=== PATIENT | female | born 1940 | race Two or more races ===

== ENCOUNTER 2024-02-01 22:44 | Emergency (ER) | payer OTHER ==
[~2024-02-01] VITALS: Ht 157.5 cm; Wt 31.8 kg
[2024-02-01] MEDS ORDERED: MONTELUKAST SODI4 M1 PO (23:08)
[2024-02-01] MEDS ORDERED: ARNUITY ELLIPT50 MCG IH (23:08)
[2024-02-01] MEDS ORDERED: FOLIC ACID0.8 M1 PO (23:09)
[2024-02-01] MEDS ORDERED: DILT-XR180 MG PO (23:09)
[2024-02-01] MEDS ORDERED: B-COMPLEX1 EACH PO (23:10)
[2024-02-01] MEDS ORDERED: VITAMIN D32400 UNIT/ MC (23:10)
[2024-02-01] MEDS ORDERED: TROMBONEX CAPS1 EACH PO (23:10)
[2024-02-01] MEDS ORDERED: LUMIGAN2.5 M1 (23:11)
[2024-02-01] MEDS ORDERED: DORZOLAMIDE 2%10 ML OP (23:11)
[2024-02-01] MEDS ORDERED: ATROPINE 1% EY1 EACH OP (23:12)
[2024-02-01] MEDS ORDERED: BENZONATATE200 M1 PO (23:12)
[2024-02-01] MEDS ORDERED: PRED PH-MOXI-BRO5 ML (23:12)
[2024-02-01] MEDS ORDERED: IBANDRONATE SO150 MG PO (23:13)
[2024-02-02] MEDS ORDERED: HYOSCYAMINE SULFATE 0.125 MG TAB.SUBL SL STA (00:32)
[2024-02-02] MEDS ORDERED: PROMETHAZINE HCL 25 MG/ML AMPUL IM STA (00:32)
[2024-02-02] MEDS ORDERED: FAMOTIDINE/PF 20 MG/2 ML VIAL IV PUSH STA (00:33)
[2024-02-02] MEDS ORDERED: LACTOBACILLUS ACIDOPHILUS 1 CAP CAP PO STA (00:33)
[2024-02-02] MEDS ORDERED: 0.9 % SODIUM CHLORIDE 1,000 ML IV ONE (00:45)
[2024-02-02] MEDS ORDERED: PROMETHAZINE HCL 25 MG/ML AMPUL ONE (01:05)
[2024-02-02] MEDS ORDERED: HYOSCYAMINE SULFATE 0.125 MG TAB.SUBL ONE (01:05)
[2024-02-02] MEDS ORDERED: LACTOBACILLUS ACIDOPHILUS 1 CAP CAP PO ONE (01:06)
[2024-02-02] MEDS ORDERED: FAMOTIDINE/PF 20 MG/2 ML VIAL ONE (01:06)
[2024-02-02 02:12] LABS: CALCIUM 8.6 mg/dL (8.5-10.1); CREATININE SERUM 1.56 mg/dL (0.55-1.02); GFR 31.54; POTASSIUM 3.13 mEq/L (3.5-5.1)
[2024-02-02 02:23] LABS: HEMATOCRIT 30.9 % (36.0-45.00); MEAN CELL VOLUME 97.2 fL (80.00-100.00); MEAN CORPUSCULAR HEMOGLOBIN 33.3 pg (27.00-32.0); MEAN CORPUSCULAR HGB CONC 34.3 g/dl (32.0-36.0); RED BLOOD COUNT 3.18 M/uL (4.00-6.00); RED CELL DISTRIBUTION WIDTH 19.8 % (11.5-14.5)
[2024-02-02 02:27] LABS: HEMOGLOBIN 10.6 g/dL (12.0-15.00); PLATELET COUNT 154 K/uL (150-450)
[2024-02-02 03:41] LABS: URINE APPEARANCE Cloudy; URINE BILIRRUBIN Negative (NEGATIVE); URINE BLOOD Small; URINE COLOR Yellow; URINE GLUCOSE Negative (NEGATIVE); URINE KETONE Negative (NEGATIVE); URINE LEUKOCYTE Moderate; URINE NITRATE Negative; URINE PROTEIN 30 (NEGATIVE)
[2024-02-02 03:45] LABS: URINE CAST 2.74 uL (0.0-1.40); URINE EPITHELIAL CELLS 44.9 uL (0.0-38.8); URINE RBC 16.7 uL (0.0-20.8); URINE WBC 82.8 uL (0.0-23.2)
[2024-02-02 04:13] LABS: URINE BACTERIA > 9821.5 uL (0.0-1933)
[2024-02-02 04:41] LABS: URINE MUCUS NEGATIVE
[2024-02-02] MEDS ORDERED: CEFTRIAXONE SODIUM 1,000 MG VIAL IV STA (05:20)
[2024-02-02] MEDS ORDERED: CEFTRIAXONE SODIUM 1,000 MG VIAL ONE (05:35)
[2024-02-02] MEDS ORDERED: CEPHALEXIN250 MG/5 M PO (07:23)
[2024-02-02] MEDS ORDERED: ONDANSETRON ODT4 MG PO (07:23)
[2024-02-02] MEDS ORDERED: INTESTINEX680 M2 PO (07:23)
[2024-02-02] MEDS ORDERED: NASAL MIST126 ML NASAL (07:23)
[2024-02-02] MEDS ORDERED: FAMOTIDINE40 MG/5 ML PO (07:26)
== END 2024-02-02 08:40 ==
LOC: EDBD 22:45 → ER 22:45
PROVIDERS: General Practice
DX: R19.7 Diarrhea, unspecified (principal); E86.0 Dehydration; R11.0 Nausea; R10.9 Unspecified abdominal pain
CPT/HCPCS: 36415; 96365; 96366; 96372; 99282; J0696; J3490 ×2; J7030

== ENCOUNTER 2024-02-06 17:22 | Inpatient (IN) | payer OTHER ==
[~2024-02-06] VITALS: Ht 154.9 cm; Wt 31.8 kg
[~2024-02-06 17:22] MED LIST: ARNUITY ELLIPT50 MCG IH; ATROPINE 1% EY1 EACH OP; B-COMPLEX1 EACH PO; BENZONATATE200 M1 PO; CEPHALEXIN250 MG/5 M PO; DILT-XR180 MG PO; DORZOLAMIDE 2%10 ML OP; FAMOTIDINE40 MG/5 ML PO; FOLIC ACID0.8 M1 PO; IBANDRONATE SO150 MG PO; INTESTINEX680 M2 PO; LUMIGAN2.5 M1; MONTELUKAST SODI4 M1 PO; NASAL MIST126 ML NASAL; ONDANSETRON ODT4 MG PO; PRED PH-MOXI-BRO5 ML; TROMBONEX CAPS1 EACH PO; VITAMIN D32400 UNIT/ MC
[2024-02-06] MEDS ORDERED: MULTIVIT INFUSN,ADULT 4,VIT K 10 ML VIAL IV ONE (18:15)
[2024-02-06] MEDS ORDERED: ONDANSETRON HCL 2 MG/ML VIAL IV ONE (18:15)
[2024-02-06] MEDS ORDERED: 0.9 % SODIUM CHLORIDE 1,000 ML IV ONE (18:15)
[2024-02-06 18:39] LABS: HEMOGLOBIN 10.2 g/dL (12.0-15.00); MEAN CELL VOLUME 98.4 fL (80.00-100.00); MEAN CORPUSCULAR HEMOGLOBIN 33.5 pg (27.00-32.0); RED BLOOD COUNT 3.05 M/uL (4.00-6.00); RED CELL DISTRIBUTION WIDTH 21.8 % (11.5-14.5)
[2024-02-06 18:51] LABS: INR 1.65; PARTIAL THROMBOPLASTIN TIME 22.2 SECONDS (22.0-34.0)
[2024-02-06 18:53] LABS: ALBUMIN 2.8 gm/dL (3.4-5.0); BILIRUBIN TOTAL 1.84 mg/dL (0.3-1.2); CALCIUM 8.3 mg/dL (8.5-10.1); CREATININE SERUM 2.85 mg/dL (0.55-1.02); GFR 15.74; GLOBULINA 3.4 G/DL (2.4-3.5); PROTHROMBIN TIME 17.3 SECONDS (9.0-11.5); TOTAL PROTEIN 6.2 gm/dL (6.4-8.2)
[2024-02-06 19:06] LABS: PLATELET COUNT 169 K/uL (150-450)
[2024-02-06 19:08] LABS: POTASSIUM 2.65 mEq/L (3.5-5.1)
[2024-02-06 20:45] LABS: URINE APPEARANCE Cloudy; URINE BILIRRUBIN Negative (NEGATIVE); URINE BLOOD Moderate; URINE COLOR Yellow; URINE GLUCOSE Negative (NEGATIVE); URINE KETONE Trace (NEGATIVE); URINE LEUKOCYTE Trace; URINE NITRATE Negative; URINE UROBILINOGEN 0.2 E.U./dl
[2024-02-06] MEDS ORDERED: SODIUM BICARBONATE 1 MEQ/ML DISP.SYRIN 50ML IV ONE (20:45)
[2024-02-06 20:49] LABS: URINE CAST 4.57 uL (0.0-1.40); URINE EPITHELIAL CELLS 33.7 uL (0.0-38.8); URINE RBC 15.8 uL (0.0-20.8)
[2024-02-06] MEDS ORDERED: 0.9 % SODIUM CHLORIDE 500 ML IV ONE (21:30)
[2024-02-06] MEDS ORDERED: 0.9 % SODIUM CHLORIDE 1,000 ML IV SCH (21:30)
[2024-02-06 21:36] LABS: URINE PROTEIN 100 (NEGATIVE)
[2024-02-06 21:37] LABS: ABG PH 7.452 (7.35-7.45); ABG PO2 116.6 mmHg (80-100); BASE EXCESS -8.2 mmol/l; BICARBONATE 12.9 mmol/l (23-25); SaO2 98.6 %; Tco2 13.4 mmol/l
[2024-02-06] MEDS ORDERED: CEFTRIAXONE SODIUM 2,000 MG in 0.9 % SODIUM CHLORIDE 100 ML IV SCH (21:40)
[2024-02-06] MEDS ORDERED: METRONIDAZOLE/SODIUM CHLORIDE 100 ML IV SCH (21:41)
[2024-02-06 21:43] LABS: URINE YEAST NEGATIVE /hpf
[2024-02-06] MEDS ORDERED: ONDANSETRON HCL 4 MG in 0.9 % SODIUM CHLORIDE 50 ML IV PRN (21:45)
[2024-02-06] MEDS ORDERED: ACETAMINOPHEN 500 MG GEL..CAP PO PRN (21:45)
[2024-02-06 21:52] LABS: ABG pCO2 18.8 mmHg (35-45); allen test SATISFACTORY; puncture site RADIAL RIGHT
[2024-02-06 21:53] LABS: o2 21 %
[2024-02-06 22:55] LABS: MAGNESIUM 2.6 mg/dL (1.8-2.4); PHOSPHOROUS 3.4 mg/dL (2.5-4.9)
[2024-02-06 22:56] LABS: C-REACTIVE PROTEIN 7.62 MG/DL (0.00-0.29)
[2024-02-07] MEDS ORDERED: POTASSIUM CHLORIDE IN WATER 100 ML IV ONE (01:30)
[2024-02-07 07:50] LABS: ALBUMIN 2.4 gm/dL (3.4-5.0); BILIRUBIN TOTAL 1.06 mg/dL (0.3-1.2); CALCIUM 7.6 mg/dL (8.5-10.1); CREATININE SERUM 2.42 mg/dL (0.55-1.02); GLOBULINA 2.4 G/DL (2.4-3.5); TOTAL PROTEIN 4.8 gm/dL (6.4-8.2)
[2024-02-07 08:55] LABS: POTASSIUM 1.98 mEq/L (3.5-5.1)
[2024-02-07] MEDS ORDERED: AMINO ACIDS/PROTEIN HYDROLYS 30 ML BLIST.PACK PO SCH (09:00)
[2024-02-07] MEDS ORDERED: FAMOTIDINE/PF 20 MG in 0.9 % SODIUM CHLORIDE 8 ML IV PUSH SCH (09:00)
[2024-02-07] MEDS ORDERED: POTASSIUM CHLORIDE/D5-0.45NACL 1,000 ML IV SCH (10:00)
[2024-02-07] MEDS ORDERED: MAGNESIUM SULFATE IN WATER 2 GM/50 ML PIGGYBAG IV NR (10:00)
[2024-02-07 10:37] VITALS: O2SAT 98
[2024-02-07] MEDS ORDERED: METRONIDAZOLE/SODIUM CHLORIDE 100 ML IV SCH (13:00)
[2024-02-07 14:50] LABS: ALBUMIN 2.3 gm/dL (3.4-5.0); BILIRUBIN TOTAL 0.89 mg/dL (0.3-1.2); CALCIUM 7.2 mg/dL (8.5-10.1); CREATININE SERUM 2.26 mg/dL (0.55-1.02); GFR 20.56; GLOBULINA 2.3 G/DL (2.4-3.5); MAGNESIUM 3.7 mg/dL (1.8-2.4); TOTAL PROTEIN 4.6 gm/dL (6.4-8.2)
[2024-02-07 15:08] LABS: POTASSIUM 1.96 mEq/L (3.5-5.1)
[2024-02-07 16:27] VITALS: BP 90/50; O2SAT 97
[2024-02-08 00:39] VITALS: BP 97/66; O2SAT 98
[2024-02-08 08:04] LABS: HEMATOCRIT 22.5 % (36.0-45.00); MEAN CELL VOLUME 97.3 fL (80.00-100.00); PLATELET COUNT 139 K/uL (150-450); RED BLOOD COUNT 2.31 M/uL (4.00-6.00); RED CELL DISTRIBUTION WIDTH 23.1 % (11.5-14.5)
[2024-02-08 08:05] LABS: HEMOGLOBIN 8.1 g/dL (12.0-15.00)
[2024-02-08 09:20] LABS: ALBUMIN 2.1 gm/dL (3.4-5.0); BILIRUBIN TOTAL 0.8 mg/dL (0.3-1.2); CALCIUM 7.2 mg/dL (8.5-10.1); CREATININE SERUM 2.36 mg/dL (0.55-1.02); GFR 19.56; GLOBULINA 2.2 G/DL (2.4-3.5); MAGNESIUM 3.1 mg/dL (1.8-2.4); TOTAL PROTEIN 4.3 gm/dL (6.4-8.2)
[2024-02-08 09:57] LABS: POTASSIUM 2.86 mEq/L (3.5-5.1)
[2024-02-08 10:32] VITALS: BP 100/50; O2SAT 98
[2024-02-08] MEDS ORDERED: ENOXAPARIN SODIUM 30 MG/0.3 ML SYRINGE SUBCUTANEO NR (11:00)
[2024-02-08] MEDS ORDERED: SOD FERRIC GLUC COMPLX/SUCROSE 62.5 MG/5 ML AMPUL IV NR (11:00)
[2024-02-08] MEDS ORDERED: CYANOCOBALAMIN (VITAMIN B-12) 1,000 MCG/ML VIAL IM NR (11:00)
[2024-02-08 16:00] VITALS: BP 65/40; O2SAT 99
[2024-02-08 19:28] LABS: MEAN CELL VOLUME 98.7 fL (80.00-100.00); MEAN CORPUSCULAR HGB CONC 34.4 g/dl (32.0-36.0); PLATELET COUNT 135 K/uL (150-450); RED BLOOD COUNT 2.22 M/uL (4.00-6.00); RED CELL DISTRIBUTION WIDTH 23.9 % (11.5-14.5)
[2024-02-08 19:38] LABS: HEMATOCRIT 21.9 % (36.0-45.00); MEAN CORPUSCULAR HEMOGLOBIN 33.7 pg (27.00-32.0)
[2024-02-08] MEDS ORDERED: FUROsemide 20 MG/2 ML VIAL IV SCH (19:45)
[2024-02-08 20:11] LABS: HEMOGLOBIN 7.5 g/dL (12.0-15.00)
[2024-02-09 00:38] VITALS: BP 74/45; O2SAT 98
[2024-02-09 08:00] VITALS: BP 80/50; O2SAT 99
[2024-02-09] MEDS ORDERED: CYANOCOBALAMIN (VITAMIN B-12) 1,000 MCG/ML VIAL IM SCH (09:00)
[2024-02-09] MEDS ORDERED: ENOXAPARIN SODIUM 30 MG/0.3 ML SYRINGE SUBCUTANEO SCH (09:00)
[2024-02-09] MEDS ORDERED: PANTOPRAZOLE SODIUM 40 MG TABLET.DR PO SCH (09:00)
[2024-02-09] MEDS ORDERED: SOD FERRIC GLUC COMPLX/SUCROSE 62.5 MG in 0.9 % SODIUM CHLORIDE 50 ML IV SCH (09:00)
[2024-02-09 18:36] VITALS: BP 92/54; O2SAT 98
[2024-02-10 03:12] VITALS: BP 81/53; O2SAT 99
[2024-02-10 03:49] VITALS: BP 122/65
[2024-02-10 08:00] VITALS: BP 98/55; O2SAT 97
[2024-02-10 12:07] LABS: HEMATOCRIT 39.9 % (36.0-45.00); MEAN CORPUSCULAR HEMOGLOBIN 31.8 pg (27.00-32.0); PLATELET COUNT 61 K/uL (150-450); RED BLOOD COUNT 4.39 M/uL (4.00-6.00); RED CELL DISTRIBUTION WIDTH 17.4 % (11.5-14.5)
[2024-02-10] MEDS ORDERED: FLUCONAZOLE IN NACL,ISO-OSM 200 MG/100 ML PIGGYBAG IV ONE (15:15)
[2024-02-10 16:00] VITALS: BP 100/600; O2SAT 95
[2024-02-10 20:33] LABS: PH,URINE 5.5 (5.0-8.0); URINE APPEARANCE Cloudy; URINE BACTERIA 209.1 uL (0.0-1933); URINE BILIRRUBIN Negative (NEGATIVE); URINE BLOOD Moderate; URINE CAST 2.44 uL (0.0-1.40); URINE COLOR Yellow; URINE GLUCOSE Negative (NEGATIVE); URINE KETONE Negative (NEGATIVE); URINE LEUKOCYTE Moderate; URINE NITRATE Negative; URINE PROTEIN 30 (NEGATIVE); URINE RBC 188.1 uL (0.0-20.8); URINE UROBILINOGEN 0.2 E.U./dl; URINE WBC 514.8 uL (0.0-23.2)
[2024-02-10 20:39] LABS: HEMATOCRIT 40.2 % (36.0-45.00); HEMOGLOBIN 13.7 g/dL (12.0-15.00); MEAN CELL VOLUME 91.5 fL (80.00-100.00); MEAN CORPUSCULAR HEMOGLOBIN 31.3 pg (27.00-32.0); MEAN CORPUSCULAR HGB CONC 34.2 g/dl (32.0-36.0); RED BLOOD COUNT 4.39 M/uL (4.00-6.00); RED CELL DISTRIBUTION WIDTH 17.8 % (11.5-14.5)
[2024-02-10 20:52] LABS: URINE YEAST MANY /hpf
[2024-02-10 20:53] LABS: PLATELET COUNT 48 K/uL (150-450)
[2024-02-10 21:45] LABS: CREATININE SERUM 1.58 mg/dL (0.55-1.02); GFR 31.08
[2024-02-10 21:46] LABS: CALCIUM 7.1 mg/dL (8.5-10.1); MAGNESIUM 1.9 mg/dL (1.8-2.4)
[2024-02-10 21:47] LABS: ALBUMIN 2.1 gm/dL (3.4-5.0); BILIRUBIN TOTAL 0.53 mg/dL (0.3-1.2); C-REACTIVE PROTEIN 7.84 MG/DL (0.00-0.29); GLOBULINA 2.3 G/DL (2.4-3.5); TOTAL PROTEIN 4.4 gm/dL (6.4-8.2)
[2024-02-10 21:52] LABS: PHOSPHOROUS 1.2 mg/dL (2.5-4.9); POTASSIUM 2.88 mEq/L (3.5-5.1)
[2024-02-10] MEDS ORDERED: POTASSIUM PHOS,M-BASIC-D-BASIC 3 MM/ML VIAL IV ONE (22:30)
[2024-02-10] MEDS ORDERED: SODIUM CHLORIDE 0.45 % 1,000 ML IV SCH (22:30)
[2024-02-11] MEDS ORDERED: POTASSIUM CHLORIDE IN WATER 40 MEQ/100 ML PIGGYBAG IV SCH
[2024-02-11 01:35] VITALS: BP 107/68; O2SAT 96
[2024-02-11 08:49] VITALS: BP 88/60; O2SAT 97
[2024-02-11 09:53] LABS: HEMATOCRIT 36.9 % (36.0-45.00); HEMOGLOBIN 12.9 g/dL (12.0-15.00); MEAN CORPUSCULAR HEMOGLOBIN 31.9 pg (27.00-32.0); MEAN CORPUSCULAR HGB CONC 35.1 g/dl (32.0-36.0); RED BLOOD COUNT 4.05 M/uL (4.00-6.00); RED CELL DISTRIBUTION WIDTH 18.5 % (11.5-14.5)
[2024-02-11 09:56] LABS: PLATELET COUNT 39 K/uL (150-450)
[2024-02-11 10:23] LABS: MANUAL PLATELET COUNT 54
[2024-02-11 10:28] LABS: ALBUMIN 1.9 gm/dL (3.4-5.0); BILIRUBIN TOTAL 0.74 mg/dL (0.3-1.2); CALCIUM 7.7 mg/dL (8.5-10.1); CREATININE SERUM 1.59 mg/dL (0.55-1.02); GFR 30.86; GLOBULINA 2.1 G/DL (2.4-3.5); POTASSIUM 4.34 mEq/L (3.5-5.1)
[2024-02-11] MEDS ORDERED: FLUCONAZOLE IN NACL,ISO-OSM 2 MG/ML ML IV SCH (13:00)
[2024-02-11] MEDS ORDERED: DEXTROSE 5 % IN WATER 1,000 ML IV SCH (17:00)
[2024-02-12 01:48] VITALS: BP 93/57; O2SAT 100
[2024-02-12] MEDS ORDERED: MEROPENEM 500 MG/VIAL VIAL IV SCH (05:00)
[2024-02-12 08:00] VITALS: BP 103/57; O2SAT 99
[2024-02-12 08:49] LABS: CREATININE SERUM 1.87 mg/dL (0.55-1.02); GFR 25.59; MAGNESIUM 1.7 mg/dL (1.8-2.4)
[2024-02-12] MEDS ORDERED: MAGNESIUM SULFATE IN WATER 50 ML IV STA (09:57)
[2024-02-12] MEDS ORDERED: DIATRIZOATE MEGLUMINE, SODIUM 30 ML BOTTLE PO NR (11:19)
[2024-02-12] MEDS ORDERED: POTASSIUM CHLORIDE IN WATER 100 ML IV SCH (12:00)
[2024-02-12 15:38] LABS: ALBUMIN 2.1 gm/dL (3.4-5.0); BILIRUBIN TOTAL 0.82 mg/dL (0.3-1.2); CALCIUM 8.3 mg/dL (8.5-10.1); CREATININE SERUM 1.95 mg/dL (0.55-1.02); GFR 24.38; GLOBULINA 2.3 G/DL (2.4-3.5); POTASSIUM 3.32 mEq/L (3.5-5.1); TOTAL PROTEIN 4.4 gm/dL (6.4-8.2)
[2024-02-12 16:07] LABS: HEMATOCRIT 39.7 % (36.0-45.00); HEMOGLOBIN 13.8 g/dL (12.0-15.00); MEAN CELL VOLUME 91.7 fL (80.00-100.00); MEAN CORPUSCULAR HEMOGLOBIN 31.8 pg (27.00-32.0); MEAN CORPUSCULAR HGB CONC 34.7 g/dl (32.0-36.0); RED BLOOD COUNT 4.33 M/uL (4.00-6.00); RED CELL DISTRIBUTION WIDTH 19.1 % (11.5-14.5)
[2024-02-12 17:00] VITALS: BP 123/59; O2SAT 95
[2024-02-12] MEDS ORDERED: CITRIC ACID/SODIUM CITRATE 30 ML BLIST.PACK PO SCH (17:00)
[2024-02-12 17:06] LABS: PLATELET COUNT 26 K/uL (150-450)
[2024-02-12] MEDS ORDERED: MAGNESIUM SULFATE 50% 1,000 MG/2 ML VIAL IV ONE (20:00)
[2024-02-12] MEDS ORDERED: METHYLPREDNISOLONE SOD SUCC 40 MG VIAL IV ONE (20:45)
[2024-02-12] MEDS ORDERED: DIPHENHYDRAMINE HCL 50 MG/ML VIAL 1ML IV ONE (20:45)
[2024-02-12] MEDS ORDERED: [UNRECOGNIZED DRUG - MIXTURE] PO SCH (21:00)
[2024-02-13 01:08] VITALS: BP 94/53; O2SAT 98
[2024-02-13 08:08] LABS: HEMATOCRIT 33.2 % (36.0-45.00); HEMOGLOBIN 11.5 g/dL (12.0-15.00); MEAN CELL VOLUME 92.4 fL (80.00-100.00); MEAN CORPUSCULAR HEMOGLOBIN 32.1 pg (27.00-32.0); MEAN CORPUSCULAR HGB CONC 34.7 g/dl (32.0-36.0); RED BLOOD COUNT 3.59 M/uL (4.00-6.00); RED CELL DISTRIBUTION WIDTH 19.9 % (11.5-14.5)
[2024-02-13 08:24] VITALS: BP 94/51; O2SAT 96
[2024-02-13] MEDS ORDERED: DIPHENHYDRAMINE HCL 150 MG,LIDOCAINE HCL 60 ML,MAG HYDROX/ALUMINUM HYD/SIMETH 60 ML PO SCH (09:00)
[2024-02-13 09:57] LABS: PLATELET COUNT 23 K/uL (150-450)
[2024-02-13] MEDS ORDERED: POTASSIUM CHLORIDE IN WATER 100 ML IV NR (10:45)
[2024-02-13 17:00] VITALS: BP 98/54; O2SAT 97
[2024-02-14 00:58] VITALS: BP 100/53; O2SAT 98
[2024-02-14 02:15] LABS: HEMOGLOBIN 10.3 g/dL (12.0-15.00); MEAN CELL VOLUME 95.6 fL (80.00-100.00); MEAN CORPUSCULAR HEMOGLOBIN 32.8 pg (27.00-32.0); MEAN CORPUSCULAR HGB CONC 34.3 g/dl (32.0-36.0); PLATELET COUNT 139 K/uL (150-450); RED BLOOD COUNT 3.13 M/uL (4.00-6.00); RED CELL DISTRIBUTION WIDTH 21.1 % (11.5-14.5)
[2024-02-14 08:00] VITALS: BP 97/51; O2SAT 98
[2024-02-14 08:12] LABS: HEMATOCRIT 29.1 % (36.0-45.00); HEMOGLOBIN 10.3 g/dL (12.0-15.00); MEAN CELL VOLUME 92.1 fL (80.00-100.00); MEAN CORPUSCULAR HEMOGLOBIN 32.4 pg (27.00-32.0); MEAN CORPUSCULAR HGB CONC 35.2 g/dl (32.0-36.0); RED BLOOD COUNT 3.16 M/uL (4.00-6.00); RED CELL DISTRIBUTION WIDTH 20.1 % (11.5-14.5)
[2024-02-14 08:19] LABS: PLATELET COUNT 125 K/uL (150-450)
[2024-02-14 09:26] LABS: ALBUMIN 1.8 gm/dL (3.4-5.0); BILIRUBIN TOTAL 0.66 mg/dL (0.3-1.2); CALCIUM 7.7 mg/dL (8.5-10.1); CREATININE SERUM 1.93 mg/dL (0.55-1.02); GFR 24.67; GLOBULINA 2.2 G/DL (2.4-3.5); MAGNESIUM 2.8 mg/dL (1.8-2.4); PHOSPHOROUS 2.6 mg/dL (2.5-4.9)
[2024-02-14 09:45] LABS: POTASSIUM 2.93 mEq/L (3.5-5.1)
[2024-02-14] MEDS ORDERED: POTASSIUM CHLORIDE IN WATER 40 MEQ/100 ML PIGGYBAG IV NR (10:55)
[2024-02-14 16:00] VITALS: BP 95/50; O2SAT 95
[2024-02-15] VITALS: BP 97/54; O2SAT 98
[2024-02-15] MEDS ORDERED: POTASSIUM CHLORIDE/D5W 20 MEQ/1,000 ML PIGGYBAG IV SCH (06:15)
[2024-02-15] MEDS ORDERED: POTASSIUM CHLORIDE/D5W 1,000 ML IV SCH (06:30)
[2024-02-15 08:00] VITALS: BP 88/56; O2SAT 96
[2024-02-15 08:22] LABS: CALCIUM 7.4 mg/dL (8.5-10.1); CREATININE SERUM 1.37 mg/dL (0.55-1.02); GFR 36.64; MAGNESIUM 2.1 mg/dL (1.8-2.4); POTASSIUM 3.26 mEq/L (3.5-5.1)
[2024-02-15 16:00] VITALS: BP 105/58; O2SAT 96
[2024-02-16 00:56] VITALS: BP 90/51; O2SAT 98
[2024-02-16 07:00] LABS: URINE BILIRRUBIN Negative (NEGATIVE); URINE BLOOD Trace; URINE COLOR Yellow; URINE GLUCOSE Negative (NEGATIVE); URINE KETONE Negative (NEGATIVE); URINE LEUKOCYTE Trace; URINE NITRATE Negative; URINE PROTEIN Trace (NEGATIVE); URINE UROBILINOGEN 0.2 E.U./dl
[2024-02-16 07:05] LABS: URINE BACTERIA 20.1 uL (0.0-1933); URINE EPITHELIAL CELLS 1.5 uL (0.0-38.8); URINE RBC 5.1 uL (0.0-20.8); URINE WBC 55.4 uL (0.0-23.2)
[2024-02-16 07:21] LABS: URINE APPEARANCE CLEAR; URINE CAST 0.45 uL (0.0-1.40)
[2024-02-16] MEDS ORDERED: POTASSIUM CHLORIDE/D5W 20 MEQ/1,000 ML PIGGYBAG IV SCH (08:30)
[2024-02-16 09:00] VITALS: BP 103/53; O2SAT 98
[2024-02-16 09:23] LABS: HEMOGLOBIN 12.6 g/dL (12.0-15.00); MEAN CELL VOLUME 91.4 fL (80.00-100.00); RED BLOOD COUNT 3.94 M/uL (4.00-6.00); RED CELL DISTRIBUTION WIDTH 21.1 % (11.5-14.5)
[2024-02-16 09:24] LABS: PLATELET COUNT 82 K/uL (150-450)
[2024-02-16 10:26] LABS: CALCIUM 7.9 mg/dL (8.5-10.1); CREATININE SERUM 1.02 mg/dL (0.55-1.02); GFR 51.5; MAGNESIUM 1.9 mg/dL (1.8-2.4); POTASSIUM 3.09 mEq/L (3.5-5.1)
[2024-02-16 17:16] VITALS: BP 90/50; O2SAT 96
[2024-02-16] MEDS ORDERED: MEROPENEM 500 MG/VIAL VIAL IV SCH (21:00)
[2024-02-17 01:25] VITALS: BP 96/55; O2SAT 98
[2024-02-17 08:00] VITALS: BP 90/50; O2SAT 94
[2024-02-17 13:54] VITALS: BP 95/60; O2SAT 97
[2024-02-17 16:00] VITALS: BP 108/63; O2SAT 100
[2024-02-18 01:54] VITALS: BP 97/54; O2SAT 100
[2024-02-18 08:00] VITALS: BP 102/55; O2SAT 96
[2024-02-18 08:55] LABS: HEMATOCRIT 33.5 % (36.0-45.00); HEMOGLOBIN 11.5 g/dL (12.0-15.00); MEAN CELL VOLUME 93.6 fL (80.00-100.00); MEAN CORPUSCULAR HEMOGLOBIN 32.3 pg (27.00-32.0); MEAN CORPUSCULAR HGB CONC 34.5 g/dl (32.0-36.0); PLATELET COUNT 81 K/uL (150-450); RED BLOOD COUNT 3.58 M/uL (4.00-6.00); RED CELL DISTRIBUTION WIDTH 23.2 % (11.5-14.5)
[2024-02-18 10:00] LABS: CALCIUM 7.2 mg/dL (8.5-10.1); CREATININE SERUM 0.79 mg/dL (0.55-1.02); GFR 69.17; MAGNESIUM 1.6 mg/dL (1.8-2.4)
[2024-02-18 10:15] LABS: POTASSIUM 2.94 mEq/L (3.5-5.1)
[2024-02-18] MEDS ORDERED: POTASSIUM CHLORIDE/D5-0.45NACL 1,000 ML IV SCH (10:30)
[2024-02-18] MEDS ORDERED: POTASSIUM CHLORIDE 10 MEQ CAPSULE PO SCH (13:00)
[2024-02-18 16:00] VITALS: BP 92/50; O2SAT 100
[2024-02-18] MEDS ORDERED: POTASSIUM CHLORIDE 20MEQ/100ML H2O PB IV NR (17:45)
[2024-02-19 00:58] VITALS: BP 104/53; O2SAT 96
[2024-02-19 08:00] VITALS: BP 80/55; O2SAT 95
[2024-02-19] MEDS ORDERED: POTASSIUM CHLORIDE-0.45% NACL 1,000 ML IV SCH (10:15)
[2024-02-19 11:30] LABS: ALBUMIN 1.7 gm/dL (3.4-5.0); BILIRUBIN TOTAL 1.11 mg/dL (0.3-1.2); CALCIUM 7.8 mg/dL (8.5-10.1); CREATININE SERUM 0.73 mg/dL (0.55-1.02); GFR 75.77; GLOBULINA 3.1 G/DL (2.4-3.5); POTASSIUM 4.48 mEq/L (3.5-5.1); TOTAL PROTEIN 4.8 gm/dL (6.4-8.2)
[2024-02-19] MEDS ORDERED: EFFER-K 10 MEQ10 MEQ PO (12:10)
[2024-02-19] MEDS ORDERED: INTESTINEX680 M1 PO (12:10)
[2024-02-19] MEDS ORDERED: QUESTRAN PACKET4 GM PO (12:10)
[2024-02-21 05:04] LABS: campy Final report (.)
== END 2024-02-19 15:26 | disposition home or self-care (01) | DRG 872 ==
LOC: ER 17:22 → SURH 21:58
PROVIDERS: General Practice; Internal Medicine; Internal Medicine Infectious Disease; Internal Medicine Nephrology; ADMIT Internal Medicine; ATTEND Internal Medicine
PROC: BW21ZZZ Computerized Tomography (CT Scan) of Abdomen and Pelvis (ICD-10-PCS; principal; 2024-02-06)
PROC: 02HV33Z Insertion of Infusion Device into Superior Vena Cava, Percutaneous Approach (ICD-10-PCS; 2024-02-08)
PROC: 30243N1 Transfusion of Nonautologous Red Blood Cells into Central Vein, Percutaneous Approach (ICD-10-PCS; 2024-02-09)
PROC: BW21YZZ Computerized Tomography (CT Scan) of Abdomen and Pelvis using Other Contrast (ICD-10-PCS; 2024-02-12)
DX: A41.9 Sepsis, unspecified organism (principal); N17.9 Acute kidney failure, unspecified; E87.20 Acidosis, unspecified; C20 Malignant neoplasm of rectum; R65.10 Systemic inflammatory response syndrome (SIRS) of non-infectious origin without acute organ dysfunction; E87.6 Hypokalemia; K52.9 Noninfective gastroenteritis and colitis, unspecified; R63.0 Anorexia; I73.9 Peripheral vascular disease, unspecified; D64.9 Anemia, unspecified; D69.6 Thrombocytopenia, unspecified